=== PATIENT | female | born 1955 | race Caucasian/White ===

== ENCOUNTER 2018-12-14 12:12 | Observation (INO) | payer BC, MEDICAID ==
[~2018-12-14] VITALS: Ht 154.9 cm; Wt 78.2 kg
[2018-12-14 12:54] LABS: BASOPHILS # (AUTO) 0.1 X10'3 (0-0.2); BASOPHILS % (AUTO) 0.6 % (0-1); EOSINOPHILS # (AUTO) 0.2 X10'3 (0-0.9); EOSINOPHILS % (AUTO) 1.8 % (0-6); HEMATOCRIT 40.4 % (35.0-45.0); HEMOGLOBIN 13.7 g/dl (12.0-16.0); LYMPHOCYTES # (AUTO) 1.9 X10'3 (1.1-4.8); LYMPHOCYTES % (AUTO) 21.9 % (21-51); MEAN CORPUSCULAR HEMOGLOBIN 29.5 PG (27.0-31.0); MEAN CORPUSCULAR HGB CONC 33.9 g/dL (33.0-36.5); MEAN CORPUSCULAR VOLUME 87.1 FL (78-98); MEAN PLATELET VOLUME 7.5 FL (7.4-10.4); MONOCYTES # (AUTO) 0.4 X10'3 (0-0.9); MONOCYTES % (AUTO) 4.5 % (2-12); NEUTROPHILS # (AUTO) 6.2 X10'3 (1.8-7.7); NEUTROPHILS % (AUTO) 71.2 % (42-75); PLATELET COUNT 336 X10'3 (140-440); RED BLOOD COUNT 4.64 X10'6 (4.20-5.60); RED CELL DISTRIBUTION WIDTH 13.5 % (11.5-14.5); WHITE BLOOD COUNT 8.6 X10'3 (4.5-11.0)
[2018-12-14 13:11] LABS: PARTIAL THROMBOPLASTIN TIME 27 SECONDS (22-32)
[2018-12-14 13:12] LABS: ALANINE AMINOTRANSFERASE 36 U/L (12-78); ALBUMIN 3.9 G/DL (3.4-5.0); ALBUMIN/GLOBULIN RATIO 0.9 (1.1-1.5); ALKALINE PHOSPHATASE 71 IU/L (46-116); ANION GAP 11 (8-16); ASPARTATE AMINO TRANSFERASE 22 U/L (10-37); BILIRUBIN,TOTAL 0.4 MG/DL (0.1-1.0); BLOOD UREA NITROGEN 16 MG/DL (7-18); BUN/CREATININE RATIO 17.4 (6.6-38.0); CHLORIDE 99 MMOL/L (99-107); CREATININE 0.92 MG/DL (0.40-0.90); GLUCOSE 258 MG/DL (70-104); POTASSIUM 3.5 MMOL/L (3.5-5.1); SODIUM 134 MMOL/L (135-145); TOTAL CARBON DIOXIDE 24.5 MMOL/L (24-32); TOTAL PROTEIN 8.2 G/DL (6.4-8.2); eGFR 62 ML/MIN
[2018-12-14 13:15] LABS: TROPONIN I < 0.04 NG/ML (0.0-0.05)
[2018-12-14] MEDS ORDERED: bisacodyl 10mg suppository rectal RC PRN (13:50)
[2018-12-14] MEDS ORDERED: potassium Cl 40MEQ/NS 500ml 500 ML IV PRN (13:50)
[2018-12-14] MEDS ORDERED: magnesium Cl slow-release 64mg tablet PO PRN (13:50)
[2018-12-14] MEDS ORDERED: potassium Cl 20 mEq SR tablet PO PRN ×2 (13:50)
[2018-12-14] MEDS ORDERED: potassium CL 10mEq/100ml bag 100 ML IV PRN (13:50)
[2018-12-14] MEDS ORDERED: magnesium 2GM in 50ml NS 50 ML IV PRN (13:50)
[2018-12-14] MEDS ORDERED: magnesium hydroxide 30ml (MOM) UD suspension PO PRN (13:50)
[2018-12-14] MEDS ORDERED: magnesium 4gm in 100ml NS 100 ML IV PRN (13:50)
[2018-12-14] MEDS ORDERED: mag hydrox/Alum hydrox/simeth 30ml oral suspension PO PRN (13:50)
[2018-12-14] MEDS ORDERED: acetaminophen 325mg tablet PO PRN ×2 (13:50)
[2018-12-14] MEDS ORDERED: AMLO5TAB16 PO (14:10)
[2018-12-14] MEDS ORDERED: CITA40TA17 PO (14:10)
[2018-12-14] MEDS ORDERED: TRAZ-251 PO (14:10)
[2018-12-14] MEDS ORDERED: METF-438 PO (14:10)
[2018-12-14] MEDS ORDERED: HYDR25TA4 PO (14:10)
[2018-12-14] MEDS ORDERED: INSU100I31 SQ (14:10)
[2018-12-14] MEDS ORDERED: INSU100I39 SQ (14:10)
[2018-12-14] MEDS ORDERED: LISI40TA4 PO (14:10)
[2018-12-14] MEDS ORDERED: ASPI-611 PO (14:11)
--- NOTE | 2018-12-14 15:30 | NUR ---
Received patient report from Olimpia BROWN in ED
[2018-12-14] MEDS: normal saline 1000ml 1,000 ML IV SCH (15:37)
[2018-12-14] MEDS: ondansetron/PF 4mg/2ml inj IV PRN (15:46)
[2018-12-14 16:00] VITALS: BP 149/79
--- NOTE | 2018-12-14 16:19 | NUR ---
PAGER ID: [phone] MESSAGE: [phone] Melisa Price. R/O stroke. Do you want aspirin given today? Its not scheduled till tomorrow. MRI was neg but pt has slight facial droop and [employer] [place] [phone]
[2018-12-14] MEDS: aspirin 325mg tablet PO SCH (17:11)
[2018-12-14 17:30] VITALS: BP_SYST 148; BP_SYST 151; BP_SYST 165; BP_DIAS 72; BP_DIAS 82
[2018-12-14] MEDS ORDERED: MESSAGE TO PHARMACY PO ONE (17:50)
[2018-12-14] MEDS ORDERED: traZODone 50mg tablet PO PRN (17:50)
[2018-12-14] MEDS ORDERED: dextrose ORAL solution 15 GM/59 ML bottle PO PRN ×2 (17:50)
[2018-12-14] MEDS ORDERED: glucagon, human recombinant 1mg kit SUBCUT PRN (17:50)
[2018-12-14] MEDS ORDERED: dextrose 50%-water 50ml dispensing syringe IV PRN ×2 (17:50)
[2018-12-14 18:00] VITALS: BP 148/82
[2018-12-14 18:23] LABS: HEMOGLOBIN A1C 11.4 % (4.5-6.2)
--- NOTE | 2018-12-14 18:28 | NUR ---
Problems reprioritized. Patient report given, questions answered & plan of care reviewed with Palma BROWN.
[2018-12-14 20:00] VITALS: BP_SYST 150; BP_SYST 153; BP_SYST 159; BP_DIAS 72; BP_DIAS 78; BP_DIAS 84
[2018-12-14] MEDS ORDERED: insulin glargine (Lantus) pen - multi-dose SQ SCH (20:00)
[2018-12-14] MEDS ORDERED: INSULIN LISPRO 15 UNIT SQ SCH (21:00)
[2018-12-14] MEDS ORDERED: temazepam 15mg capsule PO PRN (21:00)
[2018-12-14] MEDS: insulin glargine (Lantus) pen - multi-dose SQ SCH (21:14)
[2018-12-14] MEDS ORDERED: TETanus/Pertussis (Acell)/Diphther VAC/PF (Tdap-Adult) 0.5ml syringe IMVAC ONE (21:20)
[2018-12-14 22:00] VITALS: BP 153/84
[2018-12-15] VITALS (7 sets, daily range): BP systolic 115–148; BP diastolic 46–81
--- NOTE | 2018-12-15 02:24 | NUR ---
sleeping soundly on right side. resp 18pm even and unlabored.
[2018-12-15] MEDS ORDERED: magnesium Cl slow-release 64mg tablet PO PRN (03:10)
[2018-12-15] MEDS ORDERED: potassium Cl 20 mEq SR tablet PO PRN ×2 (03:10)
[2018-12-15] MEDS ORDERED: potassium CL 10mEq/100ml bag 100 ML IV PRN (03:10)
--- NOTE | 2018-12-15 03:21 | NUR ---
REPORT FROM TELEMETRY THAT PT HAD A 35BT RUN OF VTACH. PT HAD JUST BEEN UP TO THE BR AND SITTING ON BEDSIDE, TETANUS IM WAS ADMIN. TO LEFT DELTOID AND PT WAS RETURNED BACK TO LYING IN BED, WHEN CALL CAME FROM TELE. DR LOZANO WAS NOTIFIED AND NEW ORDERS FOR K+ AND MG+ PROTOCOL ORDERED, WELL LABS FOR AM. WILL CONTINUE TO MONITOR. WHEN RN VERIFIED, PT DID STATE THAT SHE HAD PAIN TO NECK AND BACK BUT WAS SURE THAT IT WAS MUSCLE RELATED FROM THE FALL PREVIOUSLY TODAY AND NOT CHEST PAIN OR HEART RELATED. " LONG I LAY STILL IT DOESNT HURT."
--- NOTE | 2018-12-15 03:34 | NUR ---
(ADD TO PREVIOUS NOTE) NEW ORDER ALSO GIVEN FOR K+ 40mEq PO X1 NOW.
--- NOTE | 2018-12-15 06:25 | NUR ---
REPORT GIVEN TO STEPHANIE WYNN.
--- NOTE | 2018-12-15 06:25 | NUR ---
Patient in room ORTHO 4023. I have received report from FAINA BROWN and had the opportunity to ask questions and assume patient care.
--- NOTE | 2018-12-15 06:30 | NUR ---
PATIENT REPORT DIZZINESS, WANTS HER BLOOD SUGAR CHECKED,
[2018-12-15] MEDS: ondansetron/PF 4mg/2ml inj IV PRN (06:47)
[2018-12-15] MEDS: normal saline 1000ml 1,000 ML IV SCH ×3 (06:55→21:15)
[2018-12-15 06:57] LABS: HEMATOCRIT 37.3 % (35.0-45.0); HEMOGLOBIN 12.6 g/dl (12.0-16.0); MEAN CORPUSCULAR HEMOGLOBIN 29.2 PG (27.0-31.0); MEAN CORPUSCULAR HGB CONC 33.7 g/dL (33.0-36.5); MEAN CORPUSCULAR VOLUME 86.7 FL (78-98); MEAN PLATELET VOLUME 7.6 FL (7.4-10.4); PLATELET COUNT 295 X10'3 (140-440); RED CELL DISTRIBUTION WIDTH 13.5 % (11.5-14.5)
[2018-12-15 07:03] LABS: ALBUMIN 3.2 G/DL (3.4-5.0); ANION GAP 9 (8-16); BLOOD UREA NITROGEN 11 MG/DL (7-18); BUN/CREATININE RATIO 17.5 (6.6-38.0); CHLORIDE 104 MMOL/L (99-107); CHOL/HDL RATIO 11.7 (0.00-4.99); CHOLESTEROL 385 MG/DL (0-200); CREATININE 0.63 MG/DL (0.40-0.90); GLUCOSE 187 MG/DL (70-104); HDL CHOLESTEROL 33 MG/DL (35-60); LDL CHOLESTEROL 269 MG/DL (50-100); MAGNESIUM 1.7 MG/DL (1.5-2.4); PHOSPHORUS 3.3 MG/DL (2.3-4.5); POTASSIUM 3.8 MMOL/L (3.5-5.1); SODIUM 137 MMOL/L (135-145); TOTAL CARBON DIOXIDE 23.7 MMOL/L (24-32); TRIGLYCERIDES 322 MG/DL (20-135); eGFR > 90 ML/MIN
[2018-12-15] MEDS: K and/or MAG REPLACEMENT MC SCH (08:00)
[2018-12-15] MEDS ORDERED: pneumococcal 23-VAL P-sac vacc 25 mcg/0.5ml vial IMVAC ONE (08:00)
[2018-12-15] MEDS ORDERED: aspirin 325mg tablet PO SCH (08:30)
[2018-12-15] MEDS: insulin Lispro (HumaLOG) vial - multi-dose SQ SCH ×4 (08:40→21:03)
[2018-12-15] MEDS: aspirin 325mg tablet PO SCH (08:43)
[2018-12-15] MEDS: citalopram 20mg tablet PO SCH (08:48)
[2018-12-15] MEDS: atorvastatin 20mg tablet PO SCH (10:05)
--- NOTE | 2018-12-15 15:49 | NUR ---
DM Consult: A1C 11.4. Pt admit s/p fall w/ L facial weakness concerns for possible CVA; EEG was normal. Lipid panel all markedly elevated on admit TG 322, Cholesterol 385, LDL 269, HDL 33. Pt currently on lipitor and takes insulin at home; Basaglar kwikpen 28units BID and Admelog Solostar 15 units TID. Pt seen by RD for written/verbal DM/heart healthy diet eds w/ RD contact information provided. Pt reports not taking her afternoon doses and knows she needs them; also reports DM MD at [facility] in [facility] recommended her to follow keto diet and pt has been experiencing nausea past 2 weeks though anion gap normal on admit w/ no urine labs. RD encouraged pt not to follow keto diet r/t DM complications and possible dyslipidemia as seen from labs; instead to follow portion control. DEEPIKA contacted [facility] and spoke w/ food safety officer who confirms pt report though MD not available. hotel assistant manager e-mailed RD pt prior 2 MD noted from November and September as well as A1C labs from July of this year which was 13.0. Current information and pt labs on admit are consistent w/ true keto diet. RD left message for RN, d/w CDE, and Eleven James MD regarding pt diet hx. Pt reports trying to get CGM but may not be able to r/t insurance issues. Pt passive during ed but was open to CDE course encouragement. PO 100% meals at this time meeting needs. Pt reports accidentally threw away bottom dentures and is agreeable to soft to chew foods, gravy w/ meats, and chopped foods which DEEPIKA d/w dietary. Will continue to monitor. Rec: 1. continue carb controlled/heart healthy diet per MD 2. soft to chew/chopped all foods, gravy w/ meats per pt request, no bottom dentures 3. wt per rx Addendum: 12/15/18 at [address] Amended: Links added.
--- NOTE | 2018-12-15 18:10 | NUR ---
Problems reprioritized. Patient report given, questions answered & plan of care reviewed with LUCIE BROWN.
--- NOTE | 2018-12-15 18:37 | NUR ---
Patient in room ORTHO 4023. I have received report from Jose Antonio BROWN and had the opportunity to ask questions and assume patient care.
[2018-12-15] MEDS: insulin glargine (Lantus) pen - multi-dose SQ SCH (21:03)
[2018-12-16 02:00] VITALS: BP 135/65
[2018-12-16 05:13] LABS: HEMATOCRIT 36.9 % (35.0-45.0); HEMOGLOBIN 12.6 g/dl (12.0-16.0); MEAN CORPUSCULAR HEMOGLOBIN 29.7 PG (27.0-31.0); MEAN CORPUSCULAR HGB CONC 34.1 g/dL (33.0-36.5); MEAN PLATELET VOLUME 7.4 FL (7.4-10.4); PLATELET COUNT 286 X10'3 (140-440); RED BLOOD COUNT 4.24 X10'6 (4.20-5.60); RED CELL DISTRIBUTION WIDTH 13.4 % (11.5-14.5); WHITE BLOOD COUNT 6.6 X10'3 (4.5-11.0)
[2018-12-16 05:23] LABS: ALBUMIN 3.1 G/DL (3.4-5.0); ANION GAP 9 (8-16); BLOOD UREA NITROGEN 12 MG/DL (7-18); BUN/CREATININE RATIO 17.4 (6.6-38.0); CALCIUM 9.3 MG/DL (8.5-10.1); CHLORIDE 107 MMOL/L (99-107); CREATININE 0.69 MG/DL (0.40-0.90); GLUCOSE 181 MG/DL (70-104); MAGNESIUM 2.1 MG/DL (1.5-2.4); PHOSPHORUS 3.5 MG/DL (2.3-4.5); POTASSIUM 3.7 MMOL/L (3.5-5.1); SODIUM 140 MMOL/L (135-145); TOTAL CARBON DIOXIDE 24.3 MMOL/L (24-32); eGFR 86 ML/MIN
[2018-12-16 06:00] VITALS: BP 142/95
--- NOTE | 2018-12-16 06:05 | NUR ---
Patient in room ORTHO 4023. I have received report from LUCIE BROWN and had the opportunity to ask questions and assume patient care.
--- NOTE | 2018-12-16 06:15 | NUR ---
Problems reprioritized. Patient report given, questions answered & plan of care reviewed with Jose Antonio BROWN.
[2018-12-16] MEDS: citalopram 20mg tablet PO SCH (07:13)
[2018-12-16] MEDS: aspirin 325mg tablet PO SCH (07:13)
[2018-12-16] MEDS: atorvastatin 20mg tablet PO SCH (07:13)
[2018-12-16] MEDS: K and/or MAG REPLACEMENT MC SCH (07:19)
[2018-12-16] MEDS: insulin Lispro (HumaLOG) vial - multi-dose SQ SCH ×2 (08:34→13:09)
[2018-12-16 10:00] VITALS: BP 155/71
[2018-12-16 14:00] VITALS: BP 153/73
[2018-12-16] MEDS ORDERED: ATOR20TA66 PO (15:25)
[2018-12-16] MEDS ORDERED: ASPI-1 PO (15:25)
== END 2018-12-16 16:30 | disposition home or self-care (01) ==
LOC: ER 12:13 → ORTHO 4S 15:33
PROVIDERS: ADMIT Family Medicine; ATTEND Family Medicine
DX: G45.9 Transient cerebral ischemic attack, unspecified (principal); E11.65 Type 2 diabetes mellitus with hyperglycemia; E11.649 Type 2 diabetes mellitus with hypoglycemia without coma; E78.5 Hyperlipidemia, unspecified; I63.9 Cerebral infarction, unspecified; E87.1 Hypo-osmolality and hyponatremia; E78.00 Pure hypercholesterolemia, unspecified; I10 Essential (primary) hypertension; N17.9 Acute kidney failure, unspecified; Z79.82 Long term (current) use of aspirin
CPT/HCPCS: 36415; 70450; 70544; 70551; 71045; 80048; 80053; 80061; 82607; 82948; 83036; 83735; 84100; 84443; 84484; 85025; 85027; 85610; 85651; 85730; 87070; 90471; 90472; 90715; 90732; 92508; 92616; 93005; 93306; 93880; 95816; 96361; 96372; 96374; 96376; 97110; 97116; 97161; 97530; 99284; G0378; J2405; J7030; J1815

== ENCOUNTER 2019-11-12 13:32 | Inpatient (IN) | payer MEDICAID ==
[~2019-11-12] VITALS: Ht 154.9 cm; Wt 79.0 kg
[~2019-11-12 13:32] MED LIST: AMLO5TAB16 PO; ASPI-1 PO; ATOR20TA66 PO; CITA40TA17 PO; HYDR25TA4 PO; INSU100I31 SQ; INSU100I39 SQ; LISI40TA4 PO; METF-438 PO; TRAZ-251 PO
[2019-11-12 14:08] LABS: BASOPHILS # (AUTO) 0.1 X10'3 (0-0.2); BASOPHILS % (AUTO) 0.6 % (0-1); EOSINOPHILS # (AUTO) 0.3 X10'3 (0-0.9); EOSINOPHILS % (AUTO) 2.9 % (0-6); HEMATOCRIT 39.8 % (35.0-45.0); HEMOGLOBIN 13.3 g/dl (12.0-16.0); LYMPHOCYTES # (AUTO) 2.4 X10'3 (1.1-4.8); LYMPHOCYTES % (AUTO) 24.3 % (21-51); MEAN CORPUSCULAR HEMOGLOBIN 29.3 PG (27.0-31.0); MEAN CORPUSCULAR HGB CONC 33.4 g/dL (33.0-36.5); MEAN CORPUSCULAR VOLUME 87.7 FL (78-98); MONOCYTES # (AUTO) 0.5 X10'3 (0-0.9); MONOCYTES % (AUTO) 5.3 % (2-12); NEUTROPHILS # (AUTO) 6.5 X10'3 (1.8-7.7); NEUTROPHILS % (AUTO) 66.9 % (42-75); PLATELET COUNT 388 X10'3 (140-440); RED BLOOD COUNT 4.53 X10'6 (4.20-5.60); RED CELL DISTRIBUTION WIDTH 13.6 % (11.5-14.5); WHITE BLOOD COUNT 9.8 X10'3 (4.5-11.0)
[2019-11-12 14:17] LABS: PARTIAL THROMBOPLASTIN TIME 29 SECONDS (22-32)
[2019-11-12 14:20] LABS: ALANINE AMINOTRANSFERASE 28 U/L (12-78); ALBUMIN 4.3 G/DL (3.4-5.0); ALBUMIN/GLOBULIN RATIO 1.2 (1.1-1.5); ALKALINE PHOSPHATASE 78 IU/L (46-116); ANION GAP 10 (8-16); ASPARTATE AMINO TRANSFERASE 18 U/L (10-37); BILIRUBIN,TOTAL 0.7 MG/DL (0.1-1.0); BLOOD UREA NITROGEN 20 MG/DL (7-18); BUN/CREATININE RATIO 17.7 (6.6-38.0); CHLORIDE 101 MMOL/L (99-107); CREATININE 1.13 MG/DL (0.40-0.90); GLUCOSE 98 MG/DL (70-104); POTASSIUM 4.1 MMOL/L (3.5-5.1); SODIUM 139 MMOL/L (135-145); TOTAL CARBON DIOXIDE 27.8 MMOL/L (24-32); eGFR 49 ML/MIN
[2019-11-12 14:22] LABS: TROPONIN I < 0.04 NG/ML (0.0-0.05)
[2019-11-12] MEDS ORDERED: aspirin 81mg tab.chew PO ONE (16:35)
[2019-11-12] MEDS ORDERED: atorvastatin 10mg tablet PO SCH (17:10)
[2019-11-12] MEDS ORDERED: HYDROcodone/acetaminophen 5mg/325mg tablet PO PRN (17:10)
[2019-11-12] MEDS ORDERED: acetaminophen 650mg rectal suppository RC PRN (17:10)
[2019-11-12] MEDS ORDERED: diphenhydrAMINE 25mg capsule PO PRN (17:10)
[2019-11-12] MEDS ORDERED: magnesium Cl slow-release 64mg tablet PO PRN (17:10)
[2019-11-12] MEDS ORDERED: magnesium hydroxide 30ml (MOM) UD suspension PO PRN (17:10)
[2019-11-12] MEDS ORDERED: bisacodyl 10mg suppository rectal RC PRN (17:10)
[2019-11-12] MEDS ORDERED: magnesium 2GM in 50ml NS 50 ML IV PRN (17:10)
[2019-11-12] MEDS ORDERED: acetaminophen 325mg tablet PO PRN ×2 (17:10)
[2019-11-12] MEDS ORDERED: HYDROcodone/acetaminophen 10/325mg tab PO PRN (17:10)
[2019-11-12] MEDS ORDERED: ondansetron/PF 4mg/2ml inj IV PRN (17:10)
[2019-11-12] MEDS ORDERED: potassium Cl 20 mEq SR tablet PO PRN ×2 (17:10)
[2019-11-12] MEDS ORDERED: magnesium 4gm in 100ml NS 100 ML IV PRN (17:10)
[2019-11-12] MEDS ORDERED: mag hydrox/Alum hydrox/simeth 30ml oral suspension PO PRN (17:10)
[2019-11-12] MEDS ORDERED: potassium CL 10mEq/100ml bag 100 ML IV PRN ×2 (17:10)
[2019-11-12] MEDS ORDERED: morphine 2 MG/ML inj. syringe IV PRN ×2 (17:10)
[2019-11-12] MEDS ORDERED: normal saline 1000ML IV soln IVB ONE (17:10)
[2019-11-12] MEDS ORDERED: iohexol 350MG/ML 100ml bottle IV ONE (17:17)
[2019-11-12] MEDS ORDERED: dextrose 50%-water 50ml dispensing syringe IV PRN ×2 (17:20)
[2019-11-12] MEDS ORDERED: insulin Lispro (HumaLOG) vial - multi-dose SQ SCH (17:20)
[2019-11-12] MEDS ORDERED: dextrose ORAL solution 15 GM/59 ML bottle PO PRN ×2 (17:20)
[2019-11-12] MEDS ORDERED: glucagon, human recombinant 1mg kit SUBCUT PRN (17:20)
[2019-11-12] MEDS ORDERED: MESSAGE TO PHARMACY PO ONE (17:20)
[2019-11-12 17:54] LABS: HEMOGLOBIN A1C 7.3 % (4.5-6.2)
[2019-11-12 17:59] LABS: CHOL/HDL RATIO 3.6 (0.00-4.99); CHOLESTEROL 129 MG/DL (0-200); HDL CHOLESTEROL 36 MG/DL (35-60); LDL CHOLESTEROL 71 MG/DL (50-100); TRIGLYCERIDES 132 MG/DL (20-135)
[2019-11-12] MEDS ORDERED: MESSAGE TO NURSING PO SCH (18:00)
[2019-11-12 18:30] VITALS: BP 143/77
[2019-11-12] MEDS: K and/or MAG REPLACEMENT MC SCH (20:00)
[2019-11-12] MEDS: heparin, porcine 5000 units/ml vial SQ SCH (20:01)
[2019-11-12] MEDS: normal saline 1000ml 1,000 ML IV SCH (20:50)
[2019-11-12] MEDS: atorvastatin 20mg tablet PO SCH (20:54)
[2019-11-12] MEDS ORDERED: insulin glargine (Lantus) pen - multi-dose SQ SCH (21:00)
[2019-11-12 22:00] VITALS: BP_SYST 115; BP_SYST 131; BP_SYST 140; BP_DIAS 67; BP_DIAS 70; BP_DIAS 76
--- NOTE | 2019-11-12 22:57 | NUR ---
ORTHOSTATICS POSITIVE, PT ASYMPTOMATIC. CHARGE NURSE AWARE. Addendum: 11/12/19 at 9398 by Zahra Younger RN Amended: Links added.
[2019-11-13 02:00] VITALS: BP 128/71
[2019-11-13 05:29] LABS: BASOPHILS % (AUTO) 0.6 % (0-1); EOSINOPHILS # (AUTO) 0.3 X10'3 (0-0.9); EOSINOPHILS % (AUTO) 4.2 % (0-6); HEMATOCRIT 34.6 % (35.0-45.0); HEMOGLOBIN 11.7 g/dl (12.0-16.0); LYMPHOCYTES # (AUTO) 2.2 X10'3 (1.1-4.8); LYMPHOCYTES % (AUTO) 33.8 % (21-51); MEAN CORPUSCULAR HEMOGLOBIN 29.3 PG (27.0-31.0); MEAN CORPUSCULAR HGB CONC 33.7 g/dL (33.0-36.5); MEAN CORPUSCULAR VOLUME 86.8 FL (78-98); MONOCYTES # (AUTO) 0.4 X10'3 (0-0.9); MONOCYTES % (AUTO) 5.8 % (2-12); NEUTROPHILS # (AUTO) 3.5 X10'3 (1.8-7.7); NEUTROPHILS % (AUTO) 55.6 % (42-75); PLATELET COUNT 306 X10'3 (140-440); RED BLOOD COUNT 3.99 X10'6 (4.20-5.60); RED CELL DISTRIBUTION WIDTH 13.4 % (11.5-14.5); WHITE BLOOD COUNT 6.4 X10'3 (4.5-11.0)
[2019-11-13] MEDS: normal saline 1000ml 1,000 ML IV SCH (05:42)
[2019-11-13 05:46] LABS: ALANINE AMINOTRANSFERASE 18 U/L (12-78); ALBUMIN 3.4 G/DL (3.4-5.0); ALBUMIN/GLOBULIN RATIO 1.1 (1.1-1.5); ALKALINE PHOSPHATASE 63 IU/L (46-116); ANION GAP 8 (8-16); ASPARTATE AMINO TRANSFERASE 18 U/L (10-37); BILIRUBIN,TOTAL 0.7 MG/DL (0.1-1.0); BLOOD UREA NITROGEN 14 MG/DL (7-18); BUN/CREATININE RATIO 18.9 (6.6-38.0); CALCIUM 9.2 MG/DL (8.5-10.1); CHLORIDE 107 MMOL/L (99-107); CHOL/HDL RATIO 3.6 (0.00-4.99); CHOLESTEROL 125 MG/DL (0-200); CREATININE 0.74 MG/DL (0.40-0.90); GLUCOSE 72 MG/DL (70-104); HDL CHOLESTEROL 35 MG/DL (35-60); LDL CHOLESTEROL 67 MG/DL (50-100); MAGNESIUM 2.1 MG/DL (1.5-2.4); PHOSPHORUS 4.2 MG/DL (2.3-4.5); POTASSIUM 3.8 MMOL/L (3.5-5.1); SODIUM 141 MMOL/L (135-145); TOTAL CARBON DIOXIDE 25.8 MMOL/L (24-32); TOTAL PROTEIN 6.6 G/DL (6.4-8.2); TRIGLYCERIDES 156 MG/DL (20-135); eGFR 80 ML/MIN
--- NOTE | 2019-11-13 06:20 | NUR ---
Problems reprioritized. Patient report given, questions answered & plan of care reviewed with Leanne BROWN.
[2019-11-13 06:57] VITALS: BP 137/66
[2019-11-13] MEDS: heparin, porcine 5000 units/ml vial SQ SCH (07:58)
[2019-11-13] MEDS: atorvastatin 20mg tablet PO SCH (07:58)
[2019-11-13] MEDS: K and/or MAG REPLACEMENT MC SCH (07:59)
[2019-11-13] MEDS ORDERED: aspirin 81mg tablet.DR PO SCH (08:00)
--- NOTE | 2019-11-13 13:01 | NUR ---
DM Consult: A1C 7.3 hx T2DM and gastroparesis currently without complications following recent upper GI eval per EMR. Pt admit w/ r/o CVA or TIA. Written DM ed w/ RD contact information placed in pt chart. Will continue to monitor. Addendum: 11/13/19 at [address] Amended: Links added. Addendum: 11/13/19 at [address] DM Consult: A1C 7.3 hx T2DM and gastroparesis currently without complications following recent upper GI eval per EMR. Pt admit w/ r/o CVA or TIA. Written DM ed w/ RD contact information placed in pt chart. DEEPIKA d/w RN regarding addition of carb controlled diet given hx if MD agreeable. Will continue to monitor.
[2019-11-13] MEDS ORDERED: ASPI-1071 PO (16:16)
[2019-11-13] MEDS ORDERED: HCTZ25T PO (16:16)
[2019-11-13] MEDS ORDERED: APIX5TAB3 PO (16:16)
== END 2019-11-13 16:54 | disposition home or self-care (01) | DRG 47 ==
LOC: ER 13:33 → ED HOLD 17:09 → ORTHO 4S 18:30
PROVIDERS: ADMIT Family Medicine; ATTEND Family Medicine
PROC: B3251ZZ Computerized Tomography (CT Scan) of Bilateral Common Carotid Arteries using Low Osmolar Contrast (ICD-10-PCS; principal; 2019-11-12)
PROC: B32G1ZZ Computerized Tomography (CT Scan) of Bilateral Vertebral Arteries using Low Osmolar Contrast (ICD-10-PCS; 2019-11-12)
PROC: B3281ZZ Computerized Tomography (CT Scan) of Bilateral Internal Carotid Arteries using Low Osmolar Contrast (ICD-10-PCS; 2019-11-12)
DX: G45.9 Transient cerebral ischemic attack, unspecified (principal); I48.0 Paroxysmal atrial fibrillation; E78.00 Pure hypercholesterolemia, unspecified; E78.5 Hyperlipidemia, unspecified; F41.8 Other specified anxiety disorders; E11.9 Type 2 diabetes mellitus without complications; I10 Essential (primary) hypertension; Z79.82 Long term (current) use of aspirin; Z79.899 Other long term (current) drug therapy; Z82.49 Family history of ischemic heart disease and other diseases of the circulatory system; Z83.3 Family history of diabetes mellitus; Z86.73 Personal history of transient ischemic attack (TIA), and cerebral infarction without residual deficits; Z90.710 Acquired absence of both cervix and uterus; Z98.51 Tubal ligation status
CPT/HCPCS: 36415; 70450; 70496; 70498; 70544; 70551; 71045; 80053; 80061; 82948; 83036; 83735; 84100; 84484; 85025; 85610; 85651; 85730; 87081; 92508; 92616; 93005; 93306; 93880; 96372; 97110; 97112; 97116; 97161; 97530; 99285; G0378; J1644; J1815; J7030; Q9967

== ENCOUNTER 2023-04-24 13:58 | Emergency (ER) | payer MEDICAID, MEDICARE ==
[~2023-04-24] VITALS: Ht 157.5 cm; Wt 79.0 kg
[~2023-04-24 13:58] MED LIST changes: -AMLO5TAB16 PO; +APIX5TAB3 PO; -ASPI-1 PO; +ASPI-1071 PO; -HYDR25TA4 PO; +HYDR25TA5 PO; +LISI40TA13 PO; -LISI40TA4 PO
[2023-04-24 14:16] VITALS: TEMP 97.8
--- NOTE | 2023-04-24 14:31 | NUR ---
PT C/O NEW ONSET NECK PAIN, WHEN NEAR SYNCOPAL EPISODE OCCURRED. PT C/O UNCONTROLLED TONGUE MOVEMENT AND SWELLING PAST 6-8 MOS.
[2023-04-24] MEDS ORDERED: diphenhydrAMINE 25mg capsule PO ONE (15:05)
[2023-04-24 15:08] LABS: BASOPHILS % (AUTO) 0.6 % (0-1); EOSINOPHILS # (AUTO) 0.1 X10'3 (0-0.9); EOSINOPHILS % (AUTO) 1.9 % (0-6); HEMATOCRIT 42.1 % (35.0-45.0); HEMOGLOBIN 13.9 g/dl (12.0-16.0); LYMPHOCYTES # (AUTO) 1.3 X10'3 (1.1-4.8); LYMPHOCYTES % (AUTO) 19.1 % (21-51); MEAN CORPUSCULAR HEMOGLOBIN 30.1 PG (27.0-31.0); MEAN CORPUSCULAR HGB CONC 33.1 g/dL (33.0-36.5); MEAN CORPUSCULAR VOLUME 91.1 FL (78-98); MEAN PLATELET VOLUME 8.4 FL (7.4-10.4); MONOCYTES # (AUTO) 0.4 X10'3 (0-0.9); MONOCYTES % (AUTO) 5.8 % (2-12); NEUTROPHILS % (AUTO) 72.6 % (42-75); PLATELET COUNT 267 X10'3 (140-440); RED BLOOD COUNT 4.63 X10'6 (4.20-5.60); RED CELL DISTRIBUTION WIDTH 13.5 % (11.5-14.5); WHITE BLOOD COUNT 6.9 X10'3 (4.5-11.0)
[2023-04-24 15:25] LABS: ALANINE AMINOTRANSFERASE 24 U/L (12-78); ALBUMIN 3.7 G/DL (3.4-5.0); ALBUMIN/GLOBULIN RATIO 1.1 (1.1-1.5); ALKALINE PHOSPHATASE 67 IU/L (46-116); ANION GAP 11 (8-16); ASPARTATE AMINO TRANSFERASE 23 U/L (10-37); BLOOD UREA NITROGEN 20 MG/DL (7-18); BUN/CREATININE RATIO 16.8 (10.0-20.0); CALCIUM 10.3 MG/DL (8.5-10.1); CHLORIDE 105 MMOL/L (99-107); CREATININE 1.19 MG/DL (0.40-0.90); GLUCOSE 270 MG/DL (70-104); POTASSIUM 4.5 MMOL/L (3.5-5.1); SODIUM 139 MMOL/L (135-145); TOTAL CARBON DIOXIDE 23.5 MMOL/L (24-32); TOTAL PROTEIN 7.2 G/DL (6.4-8.2); eCRCL 37 ML/MIN; eGFR 46 ML/MIN
[2023-04-24 15:30] LABS: PRO BRAIN NATRIURETIC PEPTIDE 270 PG/ML (0-125)
[2023-04-24 18:37] LABS: BILIRUBIN,URINE NEGATIVE (Neg); CLARITY,URINE CLEAR (Clear); COLOR,URINE STRAW (Yellow); GLUCOSE, URINE >=1000 mg/dl (Neg); KETONES,URINE NEGATIVE (Neg); LEUKOCYTE ESTERASE ,URINE NEGATIVE (Neg); NITRITES, URINE NEGATIVE (Neg); OCCULT BLOOD,URINE TRACE-INTACT (Neg); PH,URINE 5.5 (4.8-8.0); PROTEIN,URINE NEGATIVE (Neg); UROBILINOGEN,URINE 0.2 E.U/dL (0.2-1.0)
[2023-04-24 19:04] LABS: UA COLLECTION TYPE CLN CATCH MIDSTREAM
[2023-04-24 19:05] LABS: RENAL CELLS, URINE FEW /HPF; SQUAMOUS EPITHELIAL CELL,UR FEW /LPF (FEW)
[2023-04-24 19:06] LABS: BACTERIA,URINE FEW /HPF (Neg); CAL OXALATE CRYSTALS FEW /HPF (NEGATIVE); RBC,URINE 0-2 /HPF (0-2); WBC,URINE NONE SEEN /HPF (0-4)
[2023-04-24 20:25] VITALS: BP 141/91; PULSE 88; RESP 18; O2SAT 100
== END 2023-04-24 20:28 | disposition home or self-care (01) ==
LOC: ER 13:58
DX: R42 Dizziness and giddiness (principal); R55 Syncope and collapse; M54.2 Cervicalgia; R11.0 Nausea; I48.91 Unspecified atrial fibrillation; E78.00 Pure hypercholesterolemia, unspecified; I10 Essential (primary) hypertension; E11.9 Type 2 diabetes mellitus without complications; G24.01 Drug induced subacute dyskinesia; Z79.82 Long term (current) use of aspirin; Z79.899 Other long term (current) drug therapy; Z86.73 Personal history of transient ischemic attack (TIA), and cerebral infarction without residual deficits
CPT/HCPCS: 36415; 71045; 80053; 81001; 82948; 83880; 84484; 85025; 93005; 99285; Q0163

== ENCOUNTER 2025-04-28 23:48 | Emergency (ER) | payer MEDICARE ==
[~2025-04-28] VITALS: Ht 157.5 cm; Wt 86.0 kg
[~2025-04-28 23:48] MED LIST changes: -APIX5TAB3 PO; -ASPI-1071 PO; +BENZ1TAB97 PO; +BUPR-726; +DEUT12TA PO; +EMPA25TA PO; +EZET10TA80 PO; +FENO145T25 PO; +FLUD0.1T2 PO; -HYDR25TA5 PO; +LISI10TA27 PO; -LISI40TA13 PO; +METO-395 PO; -TRAZ-251 PO
--- NOTE | 2025-04-29 00:17 | ELECTROCARDIOGRAPH REPORT ---
[facility] Test Date: 2025-04-29 Test Time: 00:14:49 Pat Name: CINDY OLIVARES [facility]- [id number] Room: Gender: F Transportation Clerk: : 1955 Requested By: SARAY BERMUDEZ Order Number: [id number] Reading MD: Measurements Intervals [place] Rate: 74 P: 40 MN: 170 QRS: -40 QRSD: 96 T: 83 QT: 414 QTc: 460 Interpretive Statements Sinus rhythm Left anterior fascicular block Abnormal R-wave progression, late transition Baseline wander in lead(s) II,III,aVF Please click the below link to view image of tracing.
--- NOTE | 2025-04-29 00:35 | Physician Documentation ---
History of Present Illness General Chief Complaint: Syncope Stated Complaint: FALL Time Seen by MD: 00:31 Mode of Arrival: EMS, Stretcher History of Present Illness Initial Comments This is a very pleasant 69-year-old female who presents for evaluation of potential injuries sustained in a mechanical ground level fall. She states that she tripped, fell, struck her head in the left side. She complains of a very mild headache and neck pain. She denies any chest pain, difficulty breathing at a time, she denies any lightheadedness, syncope or near-syncope. She recalled the fall. She is not on blood thinners. She denies any vision or hearing changes. She denies any nausea, vomiting, diarrhea, abdominal pain. No concern for tobacco, alcohol or illicit substances use. Medication Reconciliation Allergies: Coded Allergies: No Known Allergies (Unverified , 04/29/25) Scheduled Atorvastatin Calcium (Atorvastatin Calcium), 80 MG PO DAILY Benztropine Mesylate* (Cogentin*), 1 TAB PO Q12H Citalopram Hydrobromide (Citalopram HBr), 40 MG PO DAILY, (Reported) Deutetrabenazine (Austedo), 1 TAB PO BID, (Reported) Empagliflozin (Jardiance), 1 TAB PO DAILY, (Reported) Ezetimibe (Ezetimibe), 1 TAB PO DAILY, (Reported) Fenofibrate Nanocrystallized (Fenofibrate), 145 MG PO DAILY@0830 Fludrocortisone Acetate* (Florinef*), 1 TAB PO DAILY Insulin Glargine,Hum.rec.anlog (Basaglar Kwikpen U-100), 28 UNITS SQ BID, (Reported) Insulin Lispro (Admelog Solostar), 15 UNITS SQ TID, (Reported) Lisinopril (Lisinopril), 1 TAB PO DAILY, (Reported) Metformin HCl (Metformin HCl), 1 TAB PO BID, (Reported) Metoprolol Succinate (Metoprolol Succinate), 1 TAB PO BID, (Reported) Miscellaneous Medications Bupropion HCl (Bupropion Xl), (Reported) Past Medical History Past Medical History: CVA/TIA/Stroke, Atrial Fibrillation, High Cholesterol, Hypertension, Diabetes Past Surgical History: noncontributory Alcohol Use: None Drug Use: none Lives In: Home Review of Systems ROS 10 point review of systems was performed and unless noted above in HPI is negative for acute process/complaint. Physical Exam Physical Exam Vital Signs: Temperature: 98.7, Source: Oral, Heart Rate: 76, Respiratory Rate: 16, BP: 174/95, Pulse Oximetry: 96, Weight: 86.000 Oxygen Flow Rate: 0 Physical Exam GENERAL: Awake, alert, oriented, GCS 15, no apparent distress, non-toxic appearing, answers questions, follows commands appropriately. HEENT: Atraumatic, normocephalic, pupils equal, extraocular muscles intact, sclerae anicteric, mucus membranes moist, oropharynx is clear, no stridor. NECK: supple, full active range of motion, trachea midline, no thyromegaly, no lymphadenopathy, no JVD. CARDIOVASCULAR: regular rate/rhythm, no murmurs/gallops/rubs, Pulses are 2+ in all extremities and symmetric. Capillary refill less than 2 seconds. PULMONARY: Nonlabored, good air movement ,no respiratory distress, speaking in full sentences, clear to auscultation bilaterally, no wheezing, no ronchi, no rales, no accessory muscle use. GASTROINTESTINAL: Soft, non-tender, non-distended, normal active bowel sounds, no organomegaly, no pulsatile masses, no CVA tenderness. NEUROLOGIC: Lucid with normal mental status. Normal facial symmetry. Moves all extremities symmetrically and with purpose. No truncal ataxia. Speech is fluid without evidence of dysarthria or aphasia, no focal deficits appreciated. MUSCULOSKELETAL: There is full range of motion of all extremities. There is no joint pain or joint swelling or joint erythema. There is no muscle pain or tenderness or swelling. EXTREMITIES: warm, well-perfused, no cyanosis, no clubbing, no edema, no acute deformities. Skin: warm, dry, no rashes or lesions, no jaundice, no petechiae orpurpura. No ecchymosis. PSYCHIATRIC: Normal affect, normal insight, normal concentration. Focused exam: [No bruising, no laceration, no active bleeding. No midline tenderness to palpation of cervical spine, no step-offs.] Progress Results/Orders Results/Orders Orders - BENJAMÍN BERMUDEZ DO Chest,Single View (04/29/25 00:06) Monitor (04/29/25 00:06) Saline Lock (10/12/25 00:06) Oxygen (04/29/25 00:06) Hs Troponin I W Calculations (04/29/25 02:06) Hs Troponin I W Calculations (04/29/25 03:06) Ct Head (04/29/25 00:31) Ct Cervical Spine (04/29/25 ) Completed Orders - BENJAMÍN BERMUDEZ DO Chest,Single View (04/29/25 00:06) Cbc/Diff (04/29/25 00:06) BMP (04/29/25 00:06) PBNP (04/29/25 00:06) Electrocardiogram (04/29/25 00:06) Hs Troponin I W Calculations (04/29/25 00:06) Ct Head (04/29/25 00:) Ct Cervical Spine (04/29/25 ) Vital Signs 04/29/25 04/29/25 00:00 00:21 Temp 98.7 Pulse 76 Resp 16 16 B/P (MAP) 174/95 Pulse Ox 96 O2 Flow Rate 0 Laboratory Tests Test 04/29/25 01:04 White Blood Count 6.9 Red Blood Count 4.06 L Hemoglobin 12.3 Hematocrit 35.7 Mean Corpuscular Volume 87.9 Mean Corpuscular Hemoglobin 30.3 Mean Corpuscular Hemoglobin Concent 34.4 Red Cell Distribution Width 13.6 Platelet Count 297 Mean Platelet Volume 7.3 L Neutrophils (%) (Auto) 58.3 Lymphocytes (%) (Auto) 29.4 Monocytes (%) (Auto) 6.6 Eosinophils (%) (Auto) 5.0 Basophils (%) (Auto) 0.7 Neutrophils # (Auto) 4.0 Lymphocytes # (Auto) 2.0 Monocytes # (Auto) 0.5 Eosinophils # (Auto) 0.3 Basophils # (Auto) 0.0 CBC Comment Sodium Level 142 Potassium Level 3.8 Chloride Level 108 H Carbon Dioxide Level 25.4 Anion Gap 9 Blood Urea Nitrogen 17 Creatinine 1.06 H Estimated GFR/1.73 m2 52 BUN/Creatinine Ratio 16.0 Glucose Level 151 H Calcium Level 9.2 Troponin I High Sensitivity 7 Pro-B-Type Natriuretic Peptide 217 H Albumin 3.4 Chemistry Comments EKG/XRAY/CT/US/VASC/MRI EKG : Additional Comment EKG was obtained per protocol and interpreted by myself shows sinus rhythm of 74, normal UT interval, narrow QRS, no QT prolongation, normal axis, no STEMI, Q-wave in inferior leads noted. Medical Decision Making Findings Facility Status: ED Holds, [facility] process The plan was discussed with the patient, who demonstrates clear understanding of the plan and is in agreement with the plan unless otherwise noted in the chart. All questions have been answered, all concerns were addressed unless otherwise documented. I was available throughout their ED stay for frequent reassessment and questions. Differential Diagnoses (considered and possible or likely): [Ground level fall, acute traumatic pain, closed head injury, concussion, subdural, subarachnoid, cervical spine fracture or subluxation. Significantly less likely to be syncope or near-syncope she recalls the entire event, unlikely to be ACS or CHF.] ??Differential Diagnoses (considered and unlikely, not requiring evaluation currently): [No evidence of lateralizing signs to suspect a stroke] MDM Data Please see [facility] for the following: Independent Historians and external Records Review. Historian: [Patient] Independent Historians: ?[Record review, EMS] Medication Management: [Reviewed medication list] Social History and determinants: [Reviewed] Please see the body of the note for the following: Any independent interpretations of ECG, imaging studies. All vitals signs/haemodynamics, ordered tests were independently reviewed and interpreted by myself. Nursing triage complaint and vitals reviewed, additional nursing notes were reviewed as available and I agree unless otherwise noted or documented in contradiction in the chart Vital Signs: Independently reviewed Labs: Independently interpreted Imaging: Independently interpreted Old Medical Records: Independently reviewed, see [facility] for relevant summary and information Pulse Oximetry: [98%] interpreted as [normal on room air] by me [Crew Foreman: [Regular Rate, Regular rhythm, no ectopy, NSR] reviewed and interpreted by me] Additionally notably showing: [Hemodynamics reviewed. The patient isn't febrile, not tachycardic, no evidence of hypotension respiratory distress. CBC normal, no leukocytosis, no anemia, normal platelets. Metabolic panel is essentially unremarkable. BNP is just slightly elevated. Troponin is negative. Chest x-ray shows no acute cardiopulmonary disease. CT head shows no acute intracranial abnormality. CT C-spine is negative for acute fracture or subluxation.] Tests considered but not ordered include: [Not applicable, exhaustive workup was obtained] Social Determinants of Health Impact: [facility] [place] access to healthcare due to below par ratio of patient to medical providers. [] Comorbid Conditions Impacting Present Evaluation and Care/Treatment: [Multiple, see list] Management Discussions with other Healthcare Providers: [None] Treatment and Disposition Medication Management (Given or considered): []. See EMR for details Consideration for Hospitalization/Escalation/Deescalation of Care: Admission for observation has been considered, [however the patient is able to tolerate p.o., their symptoms are controlled, they are able to rely on oral medications, and their chief complaint/diagnosis can be managed on outpatient basis.] ?ED Course:?[No clinical deterioration.] ?Shared decision making:?[Patient is hemodynamically stable for discharge home with follow with their primary care provider. [ ] Specific and cautious return precautions provided and discussed with full understanding. Any incidental findings were also discussed and follow up recommendations given. [] All questions answered. Patient/family were able to verbalize back return precautions. Patient/family agree to plan. Copies of imaging and laboratory studies were provided.] Code status:?FULL Please see the full Electronic Medical Record for full details of nursing documentation, medications list, other records of complete past medical history and conditions, vital signs, laboratory studies, and any radiologic study interpretations by radiologists. Portions of this note were completed using [employer] dictation software and as a result there may exist minor errors in spelling. I have reviewed elements of past family and social history and agree as included in note. Departure Disposition: 01 HOME / SELF CARE / HOMELESS Impression: Primary Impression: Ground-level fall Additional Impressions: Acute traumatic pain Closed head injury Neck pain Dizziness Condition: Improved Discharge Instructions: Head Injury, Adult, Dizziness Referrals: NO PRIMARY CARE PROVIDER (PCP) Education Educated: Patient Educated regarding: diagnosis, treatment, prognosis, need for follow up Signature Scribe Signature: No scribe Attestation: Date: Apr 29, 2025 Time: 00:35 This note accurately reflects clinical decisions, work performed by myself, Benjamín Bermudez, BENJAMÍN WILKERSON DO Apr 29, 2025 00:35
--- NOTE | 2025-04-29 00:42 | RADIOLOGY REPORT ---
CHEST RADIOGRAPH Indication: CP Technique: Single frontal view of the chest was obtained Comparison: DI CHEST,SINGLE VIEW on DOS: 03/15/25, DI CHEST,SINGLE VIEW on DOS: 04/24/23, CHEST,SINGLE VIEW on DOS: 11/12/19, CHEST,SINGLE VIEW on DOS: 12/14/18 FINDINGS: Lines and Tubes: None Lungs: No focal consolidation. Pleura: No effusion. No pneumothorax. Cardiomediastinal contours: Unremarkable Bones: No acute osseous abnormality. IMPRESSION: No acute cardiopulmonary disease.
[2025-04-29 01:14] LABS: MEAN PLATELET VOLUME 7.3 FL (7.4-10.4); RED CELL DISTRIBUTION WIDTH 13.6 % (11.5-14.5)
[2025-04-29 01:36] LABS: CREATININE 1.06 MG/DL (0.40-0.90); PRO BRAIN NATRIURETIC PEPTIDE 217 PG/ML (0-125); TOTAL CARBON DIOXIDE 25.4 MMOL/L (24-32); eCRCL 41 ML/MIN; eGFR 52 ML/MIN
--- NOTE | 2025-04-29 01:49 | RADIOLOGY REPORT ---
EXAM: CT CT HEAD INDICATION: fall, head strike TECHNIQUE: CT of the head without intravenous contrast. Radiation Dose : 1. Head: CT Dose: CTDI volume is 58.27 mGy. Dose-length product is 1041.06 mGy*cm The dose indicators for CT are the volume Computed Tomography (CT) Dose Index (CTDIvol) and the Dose Length Product (DLP), and are measured in units of mGy and mGy-cm, respectively. These indicators are not patient dose, but values generated from the CT scanner acquisition factors. The report includes radiation exposure data for exposures received during this examination. COMPARISON: MR MRI HEAD on DOS: 04/19/25, CT CT HEAD on DOS: 04/18/25, MR MRI HEAD on DOS: 03/16/25, CT CT HEAD on DOS: 03/15/25, CT STROKE ALERT on DOS: 11/12/19 FINDINGS: There is no evidence of acute intracranial hemorrhage, extra-axial collection, mass effect, midline shift, herniation or hydrocephalus. The ventricles, sulci and cisterns are age appropriate. The diaz-white differentiation is intact. Patchy periventricular and subcortical white matter hypoattenuation is nonspecific but may be related to small vessel ischemic disease. The visualized paranasal sinuses and mastoid air cells are clear. The surrounding soft tissues and osseous structures are unremarkable. IMPRESSION: 1. No acute intracranial abnormality. Radiation optimization: All CT scans at this facility use at least one of these dose optimization techniques: automated exposure control mA and/or kV adjustment per patient size (includes targeted exams where dose is matched to clinical indication) or iterative reconstruction.
--- NOTE | 2025-04-29 01:57 | RADIOLOGY REPORT ---
EXAM: CT CT CERVICAL SPINE HISTORY: fall, head strike COMPARISON: CT CT HEAD on DOS: 04/29/25, MR MRI HEAD on DOS: 04/19/25, CT CT HEAD on DOS: 04/18/25, MR MRI HEAD on DOS: 03/16/25, CT CT HEAD on DOS: 03/15/25 CTDIvol 20.03 mGy, DLP 568.83 mGy*cm. TECHNIQUE: Multiple axial CT images of the spine were obtained using bone algorithm. Axial and coronal reformatting was done. Bone and soft tissue windows were reviewed. FINDINGS: Mild reversal of normal cervical lordosis. No CT evidence of definite acute fracture, spinal dislocation, or significant appearing acute subluxation is seen. The visualized paraspinal soft tissues are grossly unremarkable. Degenerative change of the cervical spine includes severe C4-C5 and moderate C5- C6 through C7-T1 disc height loss with adjacent endplate sclerosis and anterior osteophytosis. Multilevel bilateral facet hypertrophy. Atherosclerotic vascular calcifications within the bilateral carotid bulbs. IMPRESSION: 1. No definite CT evidence of acute fracture or dislocation of the bony cervical spine. 2. Degenerative change of the cervical spine.
[2025-04-29 02:15] VITALS: TEMP 98.6
[2025-04-29 06:04] VITALS: BP 155/81; PULSE 77; RESP 16; O2SAT 97
== END 2025-04-29 10:31 | disposition home or self-care (01) ==
LOC: ER 23:49
DX: S09.90XA Unspecified injury of head, initial encounter (principal); M54.2 Cervicalgia; R42 Dizziness and giddiness; I10 Essential (primary) hypertension; E78.00 Pure hypercholesterolemia, unspecified; E11.9 Type 2 diabetes mellitus without complications; I48.91 Unspecified atrial fibrillation; G89.11 Acute pain due to trauma; Z86.73 Personal history of transient ischemic attack (TIA), and cerebral infarction without residual deficits; Z79.899 Other long term (current) drug therapy; W01.10XA Fall on same level from slipping, tripping and stumbling with subsequent striking against unspecified object, initial encounter; Y93.89 Activity, other specified; Y92.89 Other specified places as the place of occurrence of the external cause; Y99.8 Other external cause status
CPT/HCPCS: 36415; 70450; 71045; 72125; 80048; 83880; 84484; 85025; 93005; 99285; J7120; 99284